=== PATIENT | female | born 1945 | race Caucasian/White ===

== ENCOUNTER 2018-05-14 21:49 | Inpatient (IN) | payer MEDICARE | END 2018-05-16 15:00 | disposition home or self-care (01) | LOC: PCU 3S 05-16 00:18 → ER 21:49 → ED HOLD 05-15 00:33 → PCU 3S 05-15 03:30 | DX: I82.4Y9 Acute embolism and thrombosis of unspecified deep veins of unspecified proximal lower extremity (principal); I26.99 Other pulmonary embolism without acute cor pulmonale; K57.92 Diverticulitis of intestine, part unspecified, without perforation or abscess without bleeding ==